=== PATIENT | male | born 1955 | race Two or more races ===

== ENCOUNTER 2021-08-10 00:42 | Inpatient (IN) | payer OTHER ==
[~2021-08-10] VITALS: Ht 177.8 cm; Wt 91.0 kg
[~2021-08-10 00:42] MED LIST: AMLO-257 PO; ASPI81TA39 PO; DOCU100C34 PO; GLIP5 PO; HYDR25TA84 PO; INSNPH SQ; LOSA25TA21 PO; NTP TD
[2021-08-10] MEDS ORDERED: ASPIRIN 325 MG TABLET PO ONE (01:30)
[2021-08-10] MEDS ORDERED: ONDANSETRON HCL 4 MG/2 ML VIAL IVP PRN ×2 (01:30→03:00)
[2021-08-10] MEDS ORDERED: 0.9% SODIUM CHLORIDE 10 ML SYRINGE IVP PRN (01:30)
[2021-08-10] MEDS ORDERED: NITROGLYCERIN 2% (1 GM=INCH) PACKET TP ONE (01:30)
[2021-08-10 02:04] LABS: COVID AG,FIA SOURCE NASOPHARYNGEAL
[2021-08-10 02:13] LABS: BASOPHILS % (AUTO) 0.5 % (0.0-2.0); EOSINOPHILS % (AUTO) 2.3 % (1.0-6.0); HEMATOCRIT 34.6 % (41-53); HEMOGLOBIN 12.1 g/dL (13.5-17.5); LYMPHOCYTES # (AUTO) 1.5 K/uL (1.0-4.8); LYMPHOCYTES % (AUTO) 27.3 % (22.0-44.0); MEAN CORPUSCULAR HEMOGLOBIN 30.8 pg (26.0-34.0); MEAN CORPUSCULAR VOLUME 88 fL (80-100); MONOCYTES # (AUTO) 0.4 K/uL (0.1-1.0); MONOCYTES % (AUTO) 8.2 % (2.0-9.0); NEUTROPHILS # (AUTO) 3.3 K/uL (1.8-7.7); NEUTROPHILS % (AUTO) 61.7 % (40.0-70.0); PLATELET COUNT (AUTO) 168 K/uL (150-450); RED BLOOD CELL COUNT(AUTO) 3.93 MIL/uL (4.50-5.90); RED CELL DISTRIBUTION WIDTH 12.9 % (11.5-14.5)
[2021-08-10 02:20] LABS: ANION GAP 7 mmol/L (8-16); CALCIUM, TOTAL 8.2 mg/dL (8.8-10.5); CARBON DIOXIDE 28 mmol/L (22-29); CHLORIDE 109 mmol/L (98-107); CREATININE 0.97 mg/dL (0.60-1.30); GLOMERULAR FILTR. RATE CALC > 60 mL/min (>60); GLUCOSE,RANDOM 125 mg/dL (70-110); POTASSIUM 3.5 mmol/L (3.5-5.1); SODIUM SERUM 144 mmol/L (136-145); UREA NITROGEN, BLOOD 18 mg/dL (7-18)
[2021-08-10 02:24] LABS: D-DIMER 0.26 mg/L FEU (0.00-0.50); PROTHROMBIN TIME 10.8 SEC (9.4-11.6)
[2021-08-10 02:26] LABS: LACTIC ACID 0.6 mmol/L (0.4-2.0)
[2021-08-10 02:41] LABS: B-TYPE NATRIURETIC PEPTIDE 46 pg/mL (0-100)
[2021-08-10 02:46] LABS: ALANINE AMINOTRANSFERASE 83 U/L (12-78); ALBUMIN 3.1 g/dL (3.4-5.0); ALKALINE PHOSPHATASE 78 U/L (46-116); ASPARTATE AMINOTRANSFERASE 49 U/L (15-37); BILIRUBIN,TOTAL 0.4 mg/dL (0.1-1.0); CHOL/HDL RATIO 3.8 (4.2-7.3); CHOLESTEROL 150 mg/dL (131-200); CREATINE KINASE, TOTAL ONLY 83 U/L (39-308); FERRITIN 180 ng/mL (26-388); FREE T4 (FREE THYROXINE) 1.15 ng/dL (0.76-1.46); HDL CHOLESTEROL 39 mg/dL (40-60); LACTATE DEHYDROGENASE 170 U/L (85-227); LDL CHOL (CALC.) 96 mg/dL (0-130); LIPASE 152 U/L (73-393); THYROID STIMULATING HORMONE 4.71 uIU/mL (0.36-3.74); TRIGLYCERIDES 75 mg/dL (15-150)
[2021-08-10 02:50] LABS: C-REACTIVE PROTEIN QUANT < 0.05 mg/dL (0.00-0.30)
[2021-08-10] MEDS ORDERED: DEXTROSE 50%-WATER 25 GM/50 ML SYRINGE IVP PRN (03:00)
[2021-08-10] MEDS ORDERED: ACETAMINOPHEN 325 MG TABLET PO PRN (03:00)
[2021-08-10] MEDS: METOPROLOL TARTRATE 25 MG TABLET PO SCH ×3 (03:49→20:47)
[2021-08-10 04:15] VITALS: BP 156/86
[2021-08-10] MEDS ORDERED: MAGNESIUM SULFATE 2 GM/WATER 50 ML IV ONE (06:00)
[2021-08-10] MEDS ORDERED: SODIUM CHLORIDE 0.9% 250 ML IV ONE (06:20)
[2021-08-10 08:02] VITALS: BP 137/66
[2021-08-10 08:06] LABS: GLUCOMETER DEV NAME(LOC) 5N.1C; GLUCOSE,POINT OF CARE 132 MG/DL (70-110)
[2021-08-10] MEDS: TAMSULOSIN HCL 0.4 MG CAPSULE PO SCH (09:06)
[2021-08-10] MEDS: AmLODIPine BESYLATE 5 MG TABLET PO SCH ×2 (09:06→20:47)
[2021-08-10] MEDS: ASPIRIN 81 MG CHEWABLE TABLET PO SCH (09:07)
[2021-08-10] MEDS: HEPARIN SODIUM,PORCINE 5,000 UNITS/ML VIAL SQ SCH ×3 (09:07→23:45)
[2021-08-10] MEDS: LOSARTAN POTASSIUM 25 MG TABLET PO SCH ×2 (09:11→20:47)
[2021-08-10 11:25] VITALS: BP 135/66
[2021-08-10] MEDS: INSULIN LISPRO 100 UNITS/ML SQ PRN ×2 (12:08→20:51)
[2021-08-10 12:11] LABS: GLUCOMETER DEV NAME(LOC) 5N.1C; GLUCOSE,POINT OF CARE 151 MG/DL (70-110)
[2021-08-10 16:11] VITALS: BP 126/69
[2021-08-10 17:57] LABS: GLUCOMETER DEV NAME(LOC) 5N.1C; GLUCOSE,POINT OF CARE 128 MG/DL (70-110)
[2021-08-10 23:57] VITALS: BP 134/68
[2021-08-11 01:02] LABS: GLUCOMETER DEV NAME(LOC) 5S.2B; GLUCOSE,POINT OF CARE 181 MG/DL (70-110)
[2021-08-11 05:21] VITALS: BP 133/66
[2021-08-11] MEDS: INSULIN LISPRO 100 UNITS/ML SQ PRN ×4 (06:30→22:42)
[2021-08-11 08:03] VITALS: BP 145/73
[2021-08-11 08:12] LABS: BILIRUBIN,URINE NEGATIVE (NEGATIVE); GLUCOSE, URINE (UA) NEGATIVE (NEGATIVE); KETONES,URINE NEGATIVE (NEGATIVE); LEUKOCYTE ESTERASE ,URINE NEGATIVE (NEGATIVE); NITRATE,URINE NEGATIVE (NEGATIVE); PROTEIN,URINE SEE CONFIRM (NEGATIVE)
[2021-08-11 08:19] LABS: APPEARANCE,URINE HAZY (CLEAR); OCCULT BLOOD,URINE MODERATE (NEGATIVE)
[2021-08-11 08:20] LABS: BACTERIA,URINE None Seen /HPF (None Seen); SULFOSALICYLIC ACID,URINE 3+ (Negative); WBC,URINE None Seen /HPF (0-5)
[2021-08-11] MEDS: AmLODIPine BESYLATE 5 MG TABLET PO SCH ×2 (09:25→19:55)
[2021-08-11] MEDS: LOSARTAN POTASSIUM 25 MG TABLET PO SCH ×2 (09:25→19:55)
[2021-08-11] MEDS: TAMSULOSIN HCL 0.4 MG CAPSULE PO SCH (09:25)
[2021-08-11] MEDS: METOPROLOL TARTRATE 25 MG TABLET PO SCH ×2 (09:25→19:55)
[2021-08-11] MEDS: ASPIRIN 81 MG CHEWABLE TABLET PO SCH (09:26)
[2021-08-11] MEDS: HEPARIN SODIUM,PORCINE 5,000 UNITS/ML VIAL SQ SCH ×3 (09:27→22:43)
[2021-08-11 11:41] VITALS: BP 136/70
[2021-08-11 15:06] VITALS: BP 148/80
[2021-08-11 17:06] VITALS: BP 144/77
[2021-08-11 18:00] LABS: GLUCOMETER DEV NAME(LOC) 5S.2B; GLUCOSE,POINT OF CARE 150 MG/DL (70-110)
[2021-08-11 20:05] VITALS: BP 152/82
[2021-08-11 20:17] LABS: GLUCOMETER DEV NAME(LOC) 5S.1; GLUCOSE,POINT OF CARE 163 MG/DL (70-110)
[2021-08-11 20:18] LABS: GLUCOMETER DEV NAME(LOC) 5S.1; GLUCOSE,POINT OF CARE 164 MG/DL (70-110)
[2021-08-12 00:06] VITALS: BP 132/62
[2021-08-12] MEDS ORDERED: MAGNESIUM HYDROXIDE SUSPENSION 30 ML UDCUP PO ONE (00:15)
[2021-08-12] MEDS ORDERED: NITROGLYCERIN 0.4 MG SUBLINGUAL TABLET #25 SL ONE (00:15)
[2021-08-12 04:43] VITALS: BP 140/79
[2021-08-12 07:58] VITALS: BP 142/77
[2021-08-12] MEDS: HEPARIN SODIUM,PORCINE 5,000 UNITS/ML VIAL SQ SCH ×2 (08:13→16:17)
[2021-08-12] MEDS: LOSARTAN POTASSIUM 25 MG TABLET PO SCH (08:13)
[2021-08-12] MEDS: AmLODIPine BESYLATE 5 MG TABLET PO SCH (08:13)
[2021-08-12] MEDS: METOPROLOL TARTRATE 25 MG TABLET PO SCH (08:13)
[2021-08-12] MEDS: TAMSULOSIN HCL 0.4 MG CAPSULE PO SCH (08:14)
[2021-08-12] MEDS: ASPIRIN 81 MG CHEWABLE TABLET PO SCH (08:14)
[2021-08-12 11:09] LABS: GLUCOMETER DEV NAME(LOC) 5S.1; GLUCOSE,POINT OF CARE 181 MG/DL (70-110)
[2021-08-12 11:09] LABS: GLUCOMETER DEV NAME(LOC) 5S.1; GLUCOSE,POINT OF CARE 123 MG/DL (70-110)
[2021-08-12] MEDS: INSULIN LISPRO 100 UNITS/ML SQ PRN (12:10)
[2021-08-12 12:14] VITALS: BP 148/79
[2021-08-12 12:39] LABS: GLUCOMETER DEV NAME(LOC) 5S.2B; GLUCOSE,POINT OF CARE 244 MG/DL (70-110)
[2021-08-12] MEDS ORDERED: LOSA25TA21 PO (13:22)
[2021-08-12] MEDS ORDERED: METO25 PO (13:23)
[2021-08-12] MEDS ORDERED: TAMS-13 PO (13:24)
[2021-08-12] MEDS ORDERED: ISOS30TA92 PO (13:26)
[2021-08-12 15:35] VITALS: BP 152/84
== END 2021-08-12 16:56 | DRG 302 ==
LOC: EMS 00:42 → 5N 01:00
PROVIDERS: ADMIT Internal Medicine; ATTEND Internal Medicine
DX: I25.118 Atherosclerotic heart disease of native coronary artery with other forms of angina pectoris (principal); U07.1 COVID-19; I10 Essential (primary) hypertension; E11.9 Type 2 diabetes mellitus without complications; E78.5 Hyperlipidemia, unspecified; I49.9 Cardiac arrhythmia, unspecified; Z86.16 Personal history of COVID-19; Z79.82 Long term (current) use of aspirin; Z79.899 Other long term (current) drug therapy; Z90.49 Acquired absence of other specified parts of digestive tract; Z79.4 Long term (current) use of insulin
CPT/HCPCS: 71045; 80053; 80061; 81001; 81002; 82550; 82728; 82962; 83605; 83615; 83690; 83735; 83880; 84145; 84439; 84443; 84484; 85025; 85379; 85384; 85610; 85730; 86140; 87040; 93005; 93306; 99285; J1644; J2405; J3475; J7050; 36415-L1; 36415-TC; U0003

== ENCOUNTER 2021-08-18 03:20 | Emergency (ER) | payer OTHER ==
[~2021-08-18] VITALS: Ht 177.8 cm; Wt 86.4 kg
[~2021-08-18 03:20] MED LIST changes: -HYDR25TA84 PO; +ISOS30TA92 PO; +METO25 PO; -NTP TD; +TAMS-13 PO
[2021-08-18] MEDS ORDERED: GLIM2 PO (04:35)
[2021-08-18] MEDS ORDERED: IBUP-2071 PO (04:35)
[2021-08-18] MEDS ORDERED: METF-960 PO (04:35)
[2021-08-18] MEDS ORDERED: HYDR50TA36 PO (04:35)
[2021-08-18] MEDS ORDERED: FURO20 PO (04:35)
[2021-08-18 05:37] LABS: BASOPHILS % (AUTO) 0.3 % (0.0-2.0); EOSINOPHILS % (AUTO) 1.5 % (1.0-6.0); HEMATOCRIT 37.5 % (41-53); HEMOGLOBIN 13.3 g/dL (13.5-17.5); LYMPHOCYTES # (AUTO) 2.1 K/uL (1.0-4.8); LYMPHOCYTES % (AUTO) 29.3 % (22.0-44.0); MEAN CORPUSCULAR HEMOGLOBIN 30.9 pg (26.0-34.0); MEAN CORPUSCULAR HGB CONC 35.4 G/dL (31.0-37.0); MEAN CORPUSCULAR VOLUME 87 fL (80-100); MONOCYTES # (AUTO) 0.6 K/uL (0.1-1.0); MONOCYTES % (AUTO) 8.4 % (2.0-9.0); NEUTROPHILS # (AUTO) 4.2 K/uL (1.8-7.7); NEUTROPHILS % (AUTO) 60.5 % (40.0-70.0); PLATELET COUNT (AUTO) 191 K/uL (150-450); RED BLOOD CELL COUNT(AUTO) 4.29 MIL/uL (4.50-5.90); RED CELL DISTRIBUTION WIDTH 12.9 % (11.5-14.5)
[2021-08-18 05:42] LABS: ANION GAP 12 mmol/L (8-16); CALCIUM, TOTAL 8.9 mg/dL (8.8-10.5); CARBON DIOXIDE 26 mmol/L (22-29); CHLORIDE 105 mmol/L (98-107); CREATININE 0.87 mg/dL (0.60-1.30); GLOMERULAR FILTR. RATE CALC > 60 mL/min (>60); GLUCOSE,RANDOM 124 mg/dL (70-110); POTASSIUM 3.5 mmol/L (3.5-5.1); SODIUM SERUM 143 mmol/L (136-145); UREA NITROGEN, BLOOD 17 mg/dL (7-18)
[2021-08-18 05:47] LABS: ALANINE AMINOTRANSFERASE 117 U/L (12-78); ALBUMIN 3.6 g/dL (3.4-5.0); ALKALINE PHOSPHATASE 88 U/L (46-116); ASPARTATE AMINOTRANSFERASE 59 U/L (15-37); BILIRUBIN,TOTAL 0.5 mg/dL (0.1-1.0); TOTAL PROTEIN, SERUM 7.7 g/dL (6.4-8.2)
[2021-08-18] MEDS ORDERED: ACETAMINOPHEN 500 MG TABLET PO ONE (06:00)
[2021-08-18] MEDS ORDERED: ISOSORBIDE MONONITRATE 60 MG ER TABLET PO ONE (07:00)
[2021-08-18] MEDS ORDERED: ISOSORBIDE MONONITRATE 30 MG ER TABLET PO ONE (07:00)
[2021-08-18 07:25] VITALS: BP 159/76
== END 2021-08-18 07:26 | disposition home or self-care (01) ==
LOC: EMS 03:21
DX: R07.9 Chest pain, unspecified (principal); I20.8 Other forms of angina pectoris; E11.9 Type 2 diabetes mellitus without complications; I10 Essential (primary) hypertension; Z90.49 Acquired absence of other specified parts of digestive tract; Z79.84 Long term (current) use of oral hypoglycemic drugs; Z79.82 Long term (current) use of aspirin; Z79.899 Other long term (current) drug therapy
CPT/HCPCS: 71045; 80053; 84484; 85025; 93005; 99285; 36415-L1; 36415-TC